=== PATIENT | male | born 1935 | race Caucasian/White ===

== ENCOUNTER → 2018-01-23 | Day surgery (SDC) | payer OTHER, MEDICARE ==
[~2018-01-23] VITALS: Ht 170.2 cm; Wt 67.6 kg
[~2018-01-23] MED LIST: CENTRUM SILVER1 EAC3 PO; CLEOCIN T60 ML TOP; DIOVAN HCT 80-1 EACH PO; METROCREAM45 GM TOP; PERCOCET 5-3251 EACH PO
--- NOTE | 2018-01-23 09:25 | RADIOLOGY REPORT ---
EXAMINATION:\H\ \N\XR CHEST CLINICAL INFORMATION: Port-A-Cath COMPARISON: Chest CT 01/22/2018 TECHNIQUE: Frontal view of the chest was obtained. FINDINGS: New left subclavian approach CT compatible chest port seen. The tip of the chest port is near the cavoatrial junction. No pneumothorax seen. There is a 1.7 cm round left upper lobe nodule projecting posterior to the left first costosternal sternal articulation. Otherwise the lungs are clear. The additional smaller scattered abnormalities seen on yesterday's chest CT are not well appreciated by x-ray. IMPRESSION: New left subclavian approach CT compatible chest port with the tip of the catheter near the cavoatrial junction. 1.7 cm round left upper lobe nodule again seen. The additional smaller scattered abnormality seen on yesterday's chest CT are not well appreciated by x-ray.
--- NOTE | 2018-01-23 10:23 | RADIOLOGY REPORT ---
EXAMINATION:\H\ \N\XR CHEST CLINICAL INFORMATION: Port-A-Cath insertion. COMPARISON: Preprocedural CT scan of the chest 01/22/2018. TECHNIQUE: Multiple intraprocedural images of the chest were obtained during placement of a left-sided central catheter. FINDINGS: The images demonstrate placement of a central catheter from the left chest. Please refer to surgical notes for further details of the procedure. Number of images: 20. Fluoroscopy time: 0.8 minutes. kVp: 69. MAS: 6.31 IMPRESSION: 1. Multiple intraprocedural images during placement of Port-A-Cath by Dr. Cosby. 2. Please refer to operative notes for further details.
--- NOTE | 2018-01-23 10:31 | Operative Report ---
Operative/Inv Procedure Report Surgery Date: 01/23/18 Name of Procedure: Right axillary vein Port-A-Cath placement with ultrasound and fluoroscopic guidance Pre-Operative Diagnosis: Pancreatic cancer Post-Operative Diagnosis: Same Estimated Blood Loss: scant Surgeon/Edge Trimming Machine Operator: Harjeet MARQUIS,Todd Padilla Anesthesia: local monitored anesthesi Implants: [employer] Operative/Procedure Note Note: Patient brought to the operating room and laid supine. His arm tucked and a roll placed behind the shoulder. His left chest and neck were then prepped and draped. He was sedated. Using ultrasound imaging the left axillary vein was visualized and percutaneously accessed after local anesthesia placed. A wire was placed on the right atrium. Confirmation with fluoroscopic imaging was performed. The left chest was then infiltrated further with local anesthesia an incision made over the wire. An inferiorly based pocket was created with blunt and cautery dissection. The port was placed into the pocket and the catheter measured under fluoroscopic imaging. It was trimmed to 25 cm. Using fluoroscopy the dilator was placed down into the SVC. The wire was removed and passed off the field. The catheter was placed through the peel-away sheath. Sheath was then removed. Final fluoroscopic images show the catheter in the atrial SVC junction. The catheter was aspirated and flushed with concentrated heparin. The port was anchored to the deep subcutaneous tissues tissues with 0 Vicryl suture. The skin was closed with 3-0 and 4-0 Vicryl. Steri-Strips and sterile dressing applied. Sponge and needle counts are correct. CC: Stella MARQUIS,Jamar; Jorge Luis MARQUIS,Milan Fregoso
== END ==
LOC: STS 02:37
DX: C25.2 Malignant neoplasm of tail of pancreas (principal); I10 Essential (primary) hypertension; K21.9 Gastro-esophageal reflux disease without esophagitis; Z87.891 Personal history of nicotine dependence
CPT/HCPCS: 71045; C1788; J0131; J0690; J1644; J3490

== ENCOUNTER 2018-01-31 12:43 | Inpatient (IN) | payer OTHER, MEDICARE ==
[~2018-01-31] VITALS: Ht 167.6 cm; Wt 63.1 kg
--- NOTE | 2018-01-31 13:13 | ED GI/GU/ABDOMINAL COMPLAINT ---
History of Present Illness General Chief Complaint: General Adult Stated Complaint: +NV, POSSIBLE BOWEL OBSTRUCTION S/P BM 5 DAYS AGO Source: patient, family, old records Exam Limitations: no limitations Vital Signs & Intake/Output Vital Signs & Intake/Output Vital Signs Date Time Temp Pulse Resp B/P B/P Pulse O2 O2 Flow FiO2 Mean Ox Delivery Rate 01/31 1440 99.2 90 17 114/53 96 Room Air 01/31 1247 99.5 104 18 94/59 97 Room Air Allergies Coded Allergies: No Known Allergies (01/21/18) Reconcile Medications Clindamycin Phosphate (Cleocin T) 1 % LOTION 1 HÉCTOR TOP BID FACE (Reported) apply to affected area(s) Linaclotide (Linzess) 145 MCG CAPSULE 1 CAP PO DAILY GI (Reported) Megestrol Acetate 40 MG TABLET 1 TAB PO DAILY APPETITE (Reported) Metronidazole (Metrocream) 0.75 % CREAM..G. 1 HÉCTOR TOP BID FACE (Reported) apply to affected area(s) Multivit-Min/FA/Lycopen/Lutein (Centrum Silver Tablet) 0.4 MG-300 MCG-250 MCG TABLET 1 TAB PO DAILY SUPPLEMENT (Reported) Oxycodone HCl (Oxycontin) 10 MG TAB.ER.12H 1 TAB PO Q12H PAIN (Reported) Oxycodone HCl 5 MG TABLET 1-2 TAB PO PRN PAIN (Reported) Prochlorperazine Maleate 10 MG TABLET 1 TAB PO Q6 N/V (Reported) Triage Note: 82 YEAR OLD MALE WITH PANCREATITIS, STARTED FIRST CHEMO FRIDAY, PT HAS HAD N/V SINCE FRIDAY HAS NOT MOVED HIS BOWELS IN 5 DAYS. DENIES PAIN. Triage Nurses Notes Reviewed? yes HPI: 82M PMH metastatic pancreatic cancer, recently had right axillary port placed, started on chemotherapy 2 days ago, presents with 5 days without a bowel movement. Patient has been feeling ill, nauseous, and vomiting for several days. He has a poor appetite and poor PO intake. He denies abdominal pain or cramping. He is still passing gas. Last BM 5 days ago was normal. Urinating normally. He denies fever, chills, headache, chest pain, SOB, dysuria. His throat is sore from vomiting. He takes Oxycontin 10mg BID, Oxycodone 5mg PRN (3 -4x/day). He had been taking Linzess until Friday, switched to Senna by visiting nurse, and restarted Linzess 2 days ago. He has no other complaints. Last colonoscopy 2014. Past History Travel History Traveled to [place] past 21 day No Medical History Any Pertinent Medical History? see below for history Neurological: NONE EENT: NONE Cardiovascular: NONE Respiratory: NONE Gastrointestinal: GERD Hepatic: NONE Renal: NONE Musculoskeletal: NONE Psychiatric: NONE Endocrine: NONE Blood Disorders: NONE Cancer(s): pancreatic cancer SUPERVISOR TAN ROOM/Reproductive: NONE Influenza Vaccine: 05/14/09 Surgical History Surgical History: non-contributory Psychosocial History Who do you live with Spouse What is your primary language Ethiopian Tobacco Use: Never used ETOH Use: denies use Illicit Drug Use: denies illicit drug use Family History Hx Contributory? No Review of Systems Review of Systems Constitutional: Reports: no symptoms. EENTM: Reports: no symptoms. Respiratory: Reports: no symptoms. Cardiovascular: Reports: no symptoms. GI: Reports: no symptoms. Genitourinary: Reports: no symptoms. Musculoskeletal: Reports: no symptoms. Skin: Reports: no symptoms. Neurological/Psychological: Reports: no symptoms. Hematologic/Endocrine: Reports: no symptoms. Immunologic/Allergic: Reports: no symptoms. All Other Systems: Reviewed and Negative Physical Exam Physical Exam General Appearance: well developed/nourished, no apparent distress Head: atraumatic, normal appearance Eyes: Bilateral: normal appearance. Ears, Nose, Throat, Mouth: hearing grossly normal, moist mucous membrane, mild erythema in throat Neck: normal inspection, supple, full range of motion Respiratory: normal breath sounds, chest non-tender, no respiratory distress Cardiovascular: regular rate/rhythm Gastrointestinal: soft, non-tender, decreased bowel sounds Back: normal inspection, normal range of motion Extremities: normal range of motion Neurologic/Psych: awake, alert, oriented x 3, normal mood/affect Skin: intact, normal color, warm/dry Core Measures ACS in differential dx? No Sepsis Present: No Sepsis Focused Exam Completed? No Progress Differential Diagnosis: bowel obstruction, colon cancer, SBO Plan of Care: Orders Procedure Date/time Status Nothing by Mouth 01/31 D Active ED Holding Orders 01/31 1505 Active Admit to inpatient 01/31 1505 Active Vital Signs 01/[address] ABD & PELVIS W IV CONTRAST 01/31 1505 Active Patient Data 01/31 1504 Active LIPASE 01/31 1256 Complete COMPREHENSIVE METABOLIC PANEL 01/31 1256 Complete CBC WITHOUT DIFFERENTIAL 01/31 1256 Complete Laboratory Tests 01/31/18 1330: Anion Gap 14, Estimated GFR > 60, BUN/Creatinine Ratio 30.0 H, Glucose 158 H, Calcium 9.1, Total Bilirubin 1.2, AST 25, ALT 39, Alkaline Phosphatase 59, Total Protein 5.9 L, Albumin 3.3 L, Globulin 2.6, Albumin/Globulin Ratio 1.3, Lipase 22 L, CBC w Diff MAN DIFF ORDERED, RBC 4.51 L, MCV 87.4, MCH 29.4, MCHC 33.6, RDW 14.1, MPV 8.5, Gran % 94.7 H, Lymphocytes % 4.3 L, Monocytes % 0.7 L, Eosinophils % 0, Basophils % 0.3, Absolute Granulocytes 21.0 H, Absolute Lymphocytes 1.0 L, Absolute Monocytes 0.2, Absolute Eosinophils 0, Absolute Basophils 0.1, Normocytic RBCs VERIFIED, Normochromic RBCs VERIFIED Diagnostic Imaging: Viewed by Me: Radiology Read. Discussed w/RAD: Radiology Read. Radiology Impression: PATIENT: ANGIE NARANJO PRESENT AGE: 82 PATIENT ACCOUNT NO: [id number] : 33 LOCATION: [facility] ORDERING PHYSICIAN: Keith Mckeon MD SERVICE DATE: 01/31/18 EXAM TYPE : RAD - [id number] VIEW EXAMINATION: XR ABDOMEN CLINICAL INDICATION: Evaluate for obstruction or ileus COMPARISON: None TECHNIQUE: AP view of the abdomen. FINDINGS: There are air-filled loops of bowel bowel questionable for ileus. No dilated loops of bowel to suggest obstruction are seen. There is some stool seen in the colon. There is no evidence of free air. There are no calcifications. There is curvature of the lower lumbar spine to the right. There is degenerative change of the spine and at the hip joints. IMPRESSION: Probable ileus. No evidence of obstruction or free air. DICTATED BY: Eugenie Paige MD DATE/TIME DICTATED:01/31/181358 TRAVEL COTA:AARON DATE/TIME TRANSCRIBED:01/31/181358 CONFIDENTIAL, DO NOT COPY WITHOUT APPROPRIATE AUTHORIZATION. 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, Therapeutic opioid induced constipation Referrals: Jorge Luis MARQUIS,Milan Fregoso (PCP/Family) Departure Forms: Customer Survey General Discharge Information Admission Note Spoke With: Daysi MARQUIS,Milagros Lutz Documentation of Exam: Documentation of any treatments & extenuating circumstances including Concerns Regarding Discharge (functional status, medication knowledge or non-compliance, living conditions, etc.) that warrant an admission rather than observation: STAGE 4 PANCREATIC CANCER RECENTLY STARTED CHEMOTHERAPY WITH ILEUS, NO BM X 5 DAYS DESPITE OUTPATIENT THERAPY, WILL ADMIT FOR BOWEL REGIMEN, ENEMAS, SURGERY AND GI CONSULTS, PAIN MANAGEMENT.
[2018-01-31 13:42] LABS: ABSOLUTE BASOPHIL COUNT 0.1 /CUMM (0.0-0.2); ABSOLUTE EOSINOPHIL COUNT 0 /CUMM (0.0-0.7); ABSOLUTE MONOCYTE COUNT 0.2 /CUMM (0.10-0.60); BASOPHIL % 0.3 % (0.0-2.0); EOSINOPHIL % 0 % (0-5); GRANULOCYTE % 94.7 % (42.2-75.2); HEMATOCRIT 39.5 % (42-52); MEAN CORPUSCULAR HGB 29.4 PG (27.0-31.0); MEAN CORPUSCULAR HGB CONC 33.6 G/DL (33.0-37.0); MEAN CORPUSCULAR VOLUME 87.4 FL (80.0-94.0); MEAN PLATELET VOLUME 8.5 FL (7.4-10.4); PLATELET COUNT 236 /CUMM (130-400); RBC DISTRIBUTION WIDTH 14.1 % (11.5-14.5); RED BLOOD CELL CT 4.51 /CUMM (4.70-6.10); WHITE BLOOD CELL COUNT 22.2 /CUMM (4.8-10.8)
--- NOTE | 2018-01-31 14:05 | RADIOLOGY REPORT ---
EXAMINATION: XR ABDOMEN CLINICAL INDICATION: Evaluate for obstruction or ileus COMPARISON: None TECHNIQUE: AP view of the abdomen. FINDINGS: There are air-filled loops of bowel bowel questionable for ileus. No dilated loops of bowel to suggest obstruction are seen. There is some stool seen in the colon. There is no evidence of free air. There are no calcifications. There is curvature of the lower lumbar spine to the right. There is degenerative change of the spine and at the hip joints. IMPRESSION: Probable ileus. No evidence of obstruction or free air.
[2018-01-31] MEDS ORDERED: MEGESTROL ACETA40 MG PO (14:19)
[2018-01-31] MEDS ORDERED: PROCHLORPERAZIN10 MG PO (14:19)
[2018-01-31] MEDS ORDERED: OXYCONTIN10 M1 PO (14:21)
[2018-01-31] MEDS ORDERED: LINZESS145 MC1 PO (14:21)
[2018-01-31] MEDS ORDERED: OXYCODONE HCL5 M1 PO (14:21)
--- NOTE | 2018-01-31 15:05 | History & Physical ---
Tung MARQUIS,Moreno 01/31/18 1504: General Information and HPI History of Present Illness: Mr. Thurston is an 82-year-old male with past medical history of metastatic pancreatic cancer recently started on gemcitabine 2 days ago followed by LU Bryant, and a recently placed right axillary port for this chemotherapy who presents with constipation. The patient notes that his last bowel movement was on Friday. Since then, he has had persistent constipation and for the past 2 days he has had vomiting twice a day as well that was nonbloody. He is passing gas but is not eating much. He complains of persistent nausea and burping as well as some mild associated shortness of breath. He has no fever, chills, chest pain, cough, or dysuria. He is a former smoker denies alcohol or drug use. Allergies/Medications Allergies: Coded Allergies: No Known Allergies (01/21/18) Home Med list Clindamycin Phosphate (Cleocin T) 1 % LOTION 1 HÉCTOR TOP BID FACE (Reported) apply to affected area(s) Docusate Sodium 100 MG CAPSULE 100 MG PO DAILY NEEDED PRN CONSTIPATION Linaclotide (Linzess) 145 MCG CAPSULE 1 CAP PO DAILY GI (Reported) Megestrol Acetate 40 MG TABLET 1 TAB PO DAILY APPETITE (Reported) Metronidazole (Metrocream) 0.75 % CREAM..G. 1 HÉCTOR TOP BID FACE (Reported) apply to affected area(s) Multivit-Min/FA/Lycopen/Lutein (Centrum Silver Tablet) 0.4 MG-300 MCG-250 MCG TABLET 1 TAB PO DAILY SUPPLEMENT (Reported) Oxycodone HCl (Oxycontin) 10 MG TAB.ER.12H 1 TAB PO Q12H PAIN (Reported) Oxycodone HCl 5 MG TABLET 1-2 TAB PO PRN PAIN (Reported) Prochlorperazine Maleate 10 MG TABLET 1 TAB PO Q6 N/V (Reported) Sennosides/Docusate Sodium (Senna-Time S Tablet) 8.6 MG-50 MG TABLET 187 MG PO AT BEDTIME PRN Constipation Past History Travel History Traveled to [place] past 21 day No Medical History Neurological: NONE EENT: NONE Cardiovascular: NONE Respiratory: NONE Gastrointestinal: GERD Hepatic: NONE Renal: NONE Musculoskeletal: NONE Psychiatric: NONE Endocrine: NONE Blood Disorders: NONE Cancer(s): pancreatic cancer RN RESOURCE NURSE/Reproductive: NONE Influenza Vaccine: 05/14/09 Surgical History Surgical History: non-contributory Past Family/Social History Psychosocial History ETOH Use: denies use Illicit Drug Use: denies illicit drug use Review of Systems Review of Systems Constitutional: Reports: no symptoms. EENTM: Reports: no symptoms. Cardiovascular: Reports: no symptoms. Respiratory: Reports: no symptoms. GI: Reports: see HPI. Genitourinary: Reports: no symptoms. Musculoskeletal: Reports: no symptoms. Skin: Reports: no symptoms. Neurological/Psychological: Reports: no symptoms. Hematologic/Endocrine: Reports: no symptoms. Immunologic/Allergic: Reports: no symptoms. All Other Systems: Reviewed and Negative Exam & Diagnostic Data Last 24 Hrs of Vital Signs/I&O Vital Signs Date Time Temp Pulse Resp B/P B/P Pulse O2 O2 Flow FiO2 Mean Ox Delivery Rate 01/31 1440 99.2 90 17 114/53 96 Room Air 01/31 1247 99.5 104 18 94/59 97 Room Air Intake & Output 01/31 1600 01/31 0800 01/31 0000 Intake Total Output Total Balance Patient 67.132 kg Weight Physical Exam General Appearance Alert, Oriented X3, Cooperative, No Acute Distress Cardiovascular Regular Rate, Normal S1, Normal S2, L axillary port nonerythematous Lungs Clear to Auscultation Abdomen Soft, No Tenderness Extremities No Edema, Normal Pulses, No Tenderness/Swelling Last 24 Hrs of Labs/Satya: Laboratory Tests 01/31/18 1330: Anion Gap 14, Estimated GFR > 60, BUN/Creatinine Ratio 30.0 H, Glucose 158 H, Calcium 9.1, Total Bilirubin 1.2, AST 25, ALT 39, Alkaline Phosphatase 59, Total Protein 5.9 L, Albumin 3.3 L, Globulin 2.6, Albumin/Globulin Ratio 1.3, Lipase 22 L, CBC w Diff MAN DIFF ORDERED, RBC 4.51 L, MCV 87.4, MCH 29.4, MCHC 33.6, RDW 14.1, MPV 8.5, Gran % 94.7 H, Lymphocytes % 4.3 L, Monocytes % 0.7 L, Eosinophils % 0, Basophils % 0.3, Absolute Granulocytes 21.0 H, Absolute Lymphocytes 1.0 L, Absolute Monocytes 0.2, Absolute Eosinophils 0, Absolute Basophils 0.1, Normocytic RBCs VERIFIED, Normochromic RBCs VERIFIED Assessment/Plan Assessment: Mr. Thurston is an 82-year-old male with past medical history of metastatic pancreatic cancer recently started on gemcitabine 2 days ago followed by LU Bryant, and a recently placed right axillary port for this chemotherapy who presents with constipation. On presentation, vital signs were T 99.4, HR 104, RR 18, BP 194/59, saturating 97% room air. Laboratories were significant for white blood cell count 22.4, hemoglobin 13.3, MCV 87.4, chloride 96, BUN 33, LFTs negative. Abdominal x-ray showed a mild ileus. He will be admitted to general medicine and treated for the following problems: 1. Constipation 2. Leukocytosis 3. Normocytic anemia #Constipation: Patient has metastatic pancreatic cancer recently started on gemcitabine now presenting with constipation 2 days after starting the chemotherapy drug. Gemcitabine does not seem to be associated with constipation or leukocytosis. It is possible that he is developed a malignant SBO though the abdominal x-ray did not show this. He is passing gas though he seems to have significant burping. If he is partially obstructed, we can give promotility agents. -N.p.o. -CT scan abdomen/pelvis w/ contrast -GI consult -Oncology consult -IV fluid hydration -Bowel regimen -Ondansetron -Pantoprazole IV -IV pain control #Leukocytosis: Patient has marked leukocytosis but is afebrile without signs of infection. It is possibly reactive. -Monitor for infection -Blood cultures -If febrile, consider starting antibiotics #Normocytic anemia: Likely related to chemotherapy drug. -Continue to monitor #Chronic medical problems: Continue other home medications DVT prophylaxis with enoxaparin Regular diet Full code As Ranked By This Provider Problem List: 1. Pancreatic cancer metastasized to lung Core Measures/Misc (03/30) Acute Coronary Syndrome ACS Diagnosis: No Congestive Heart Failure Congestive Heart Failure Diagnosis No Cerebrovascular Accident CVA/TIA Diagnosis: No VTE (View Protocol) VTE Risk Factors Age>40 No Mechanical VTE Prophylaxis d/t N/A MechProphylax Ordered No VTE Pharm Prophylaxis d/t NA PharmProphylax ordered Sepsis (View protocol) Sepsis Present: No If YES complete Sepsis Event Note If YES complete Sepsis Event Note Daysi MARQUIS,Milagros 01/31/18 1604: Core Measures/Misc (03/30) Sepsis (View protocol) If YES complete Sepsis Event Note If YES complete Sepsis Event Note Attending MD Review Statement Attending Statement Attending MD Statement: examined this patient, discuss w/resident/PA/FIGURE MODEL, agreed w/resident/PA/FIGURE MODEL, reviewed EMR data (avail), reviewed images Attending Assessment/Plan: 82-year-old male past medical history of metastatic pancreatic carcinoma, recent port placement and chemotherapy with gemcitabine. Has chronic constipation and there has been worse for the past few days with no bowel movement at all, has also been vomiting intermittently. When he came in today he has leukocytosis of unclear etiology, there is no obvious focus of infection and the port site appears clean. His abdominal x-ray shows an ileus and he appears dehydrated on exam. We'll bring him into GEN med, gently hydrate him, get a CT scan of the abdomen to see the extent of the ileus and to make sure there is no malignant mass causing the obstruction. For now will watch him off antibiotics and panculture him. Convert his opiates to IV giving them to him very carefully given the ileus.
--- NOTE | 2018-01-31 16:08 | Admission Certification ---
Admission Certification Certification Statement - As attending physician, I certify that at the time of - admission, based on clinical presentation, severity of - symptoms, need for further diagnostic testing and - therapeutic interventions, and risk of adverse outcomes - without in-hospital treatment, in my clinical assessment, - this patient requires an acute hospital stay for a minimum - of two nights or longer. I have also considered psychsocial - factors such as support system, advanced age, financial - issues, cognitive issues, and failed out-patient treatments, - past re-admission history, safety of patient, and lack of - compliance as applicable. Specific rationale supporting this admission is: Ileus in patient with metastatic cancer
--- NOTE | 2018-01-31 18:00 | CT SCAN REPORT ---
EXAMINATION: CT ABDOMEN AND PELVIS WITH CONTRAST CLINICAL INFORMATION: No bowel movement for 5 days. History of metastatic pancreatic adenocarcinoma. COMPARISON: CT abdomen pelvis 12/31/2017. TECHNIQUE: Multidetector volumetric imaging was performed of the abdomen and pelvis following IV administration of 95 mL of Optiray 320 intravenous contrast. Sagittal and coronal reformatted images were obtained on the technologist's workstation. DLP: 283.87 mGy-cm FINDINGS: LUNG BASES: Stable subpleural 4 mm subpleural nodule at the left lung base image 48 (3). LIVER, GALLBLADDER, AND BILIARY TREE: There are multiple low attenuating lesions again seen in the liver both the left and right lobes. This has not changed substantially since the CAT scan of 12/31/2017. No intrapelvic bile duct dilatation. The gallbladder is unremarkable with no evidence of radiopaque gallstones, gallbladder wall thickening, or obvious pericholecystic inflammatory changes. PANCREAS: Low attenuating mass at the tail the pancreas not changed since prior CAT scan 12/31/2017. The smaller additional cystic areas at the mid body noted on prior CAT scan remain unchanged in size as well. No new lesion of the pancreas. No pancreatic duct dilatation. SPLEEN: Unremarkable. ADRENAL GLANDS: Unremarkable. KIDNEYS AND URETERS: The kidneys are normal in size, shape, and attenuation. No hydronephrosis, hydroureter, or calculi seen. No perinephric stranding. There are multiple bilateral renal cysts. BLADDER: Unremarkable. GASTROINTESTINAL TRACT: There is no acute change of the bowel. No bowel obstruction. No bowel wall thickening or edema. There are scattered diverticula of the left colon but no diverticulitis. There is a moderate amount of stool in the colon. The appendix is normal. There is a duodenal diverticulum at the second portion of duodenum measuring 4 cm. The thickening of the duodenum and small bowel loops adjacent to the pancreatic mass are suspicious for invasion of the wall of small bowel but there is no obstruction of the bowel. ABDOMINAL WALL: There are small bilateral fat-containing inguinal hernias. LYMPH NODES: There is no bulky lymphadenopathy. VASCULAR: There is atherosclerotic vascular wall calcifications of aorta and iliac arteries without aneurysm. PELVIC VISCERA: Prostate measures 4.5 cm transverse. OSSEOUS STRUCTURES: There is degenerative spondylosis of the spine with multilevel disc height narrowing and endplate spurring of the vertebrae. There is an S-shaped scoliosis of the spine. IMPRESSION: 1. No acute change. No significant change since the prior CAT scan of 12/31/2017. 2. Large mass at tail of pancreas consistent with history of adenocarcinoma. Metastatic lesions again noted within the liver.
[2018-01-31 18:01] VITALS: BP 128/60
[2018-01-31 22:03] VITALS: BP 108/56
[2018-02-01 06:32] VITALS: BP 106/56
--- NOTE | 2018-02-01 08:37 | PN- Housestaff ---
See Addendum Subjective Follow-up For: Constipation Subjective: No overnight events. The patient had 4 bowel movement since yesterday feels much better. He had no fevers, chills, or other issues overnight. He would like to go home today. Review of Systems Constitutional: Reports: no symptoms. EENTM: Reports: no symptoms. Cardiovascular: Reports: no symptoms. Respiratory: Reports: no symptoms. Gastrointestinal: Reports: see HPI. Genitourinary: Reports: no symptoms. Musculoskeletal: Reports: no symptoms. Skin: Reports: no symptoms. Neurological/Psychological: Reports: no symptoms. Hematologic/Endocrine: Reports: no symptoms. Immunologic/Allergic: Reports: no symptoms. Objective Last 24 Hrs of Vital Signs/I&O Vital Signs Date Time Temp Pulse Resp B/P B/P Pulse O2 O2 Flow FiO2 Mean Ox Delivery Rate 02/01 0632 97.5 81 20 106/56 97 Room Air 01/31 2203 98.4 89 20 108/56 97 Room Air 01/31 1807 Room Air 01/31 1801 99.6 88 18 128/60 97 Room Air 01/31 1626 99.9 96 16 108/55 97 Room Air 01/31 1440 99.2 90 17 114/53 96 Room Air 01/31 1247 99.5 104 18 94/59 97 Room Air Intake & Output 02/01 1600 02/01 0800 02/01 0000 Intake Total 440 1040 Output Total 100 Balance 440 940 Intake, IV 200 800 Intake, Oral 240 240 Number 3 1 Bowel Movements Output, Urine 100 Patient 63.106 kg 67.585 kg Weight Weight Bed scale Measurement Method Physical Exam General Appearance: Alert, Oriented X3, Cooperative, No Acute Distress Cardiovascular: Regular Rate, Normal S1, Normal S2 Lungs: Clear to Auscultation Abdomen: Normal Bowel Sounds, Soft, No Tenderness Current Medications: Current Medications Sig/Simon Start time Last Medication Dose Route Stop Time Status Admin Acetaminophen 1,000 MG Q8P PRN 01/31 1600 AC N/A 1 UNIT IV Acetaminophen 1,000 MG Q8P PRN 01/31 1545 DC PO Bisacodyl 10 MG Q12P PRN 01/31 1900 AC VA Bisacodyl 10 MG ONCE ONE 01/31 1430 DC 01/31 VA 01/31 1431 1733 Dextrose/Lactated 1,000 ML Q10H 01/31 1545 DC 01/31 Ringer's IV 02/01 0144 1733 Docusate Sodium 100 MG DAILY NEEDED PRN 01/31 1900 AC PO Enoxaparin Sodium 40 MG DAILY 02/01 0900 AC SC Ketorolac 15 MG Q6P PRN 01/31 1545 AC Tromethamine IV Metoclopramide HCl 0 .STK-MED ONE 01/31 1530 DC PO Metoclopramide HCl 10 MG ONCE ONE 01/31 1430 DC 01/31 PO 01/31 1431 1500 Morphine Sulfate 6 MG Q4 HRS NEEDED PRN 01/31 1600 AC IV Ondansetron HCl 4 MG Q6-PRN PRN 01/31 1545 AC IV Oxycodone HCl 5 MG Q6 PRN 01/31 1545 DC PO Pantoprazole Sodium 40 MG DAILY 01/31 1600 AC 01/31 IV 2031 Senna 187 MG AT BEDTIME 01/31 2100 AC 01/31 PO 2031 Sodium Phosphate 1 UNIT ONCE ONE 01/31 1515 DC 01/31 VA 01/31 1516 1832 Last 24 Hrs of Lab/Satya Results Last 24 Hrs of Labs/Mics: Laboratory Tests 02/01/18 0550: Sodium Pending, Potassium Pending, Chloride Pending, Carbon Dioxide Pending, Anion Gap Pending, BUN Pending, Creatinine Pending, BUN/Creatinine Ratio Pending , CBC w Diff Pending, WBC Pending, RBC Pending, Hgb Pending, Hct Pending, MCV Pending, MCH Pending, MCHC Pending, RDW Pending, Plt Count Pending, MPV Pending 01/31/18 2200: Urinalysis LIGHT H, Urine Color YEL, Urine Clarity CLEAR, Urine pH 6.0, Ur Specific [place] 1.010, Urine Protein 30 H, Urine Ketones NEG, Urine Nitrite NEG, Urine Bilirubin NEG, Urine Urobilinogen 1.0, Ur Leukocyte Esterase NEG, Ur Microscopic SEDIMENT EXAMINED, Urine RBC 1-3, Urine Hemoglobin NEG, Urine Glucose NEG 01/31/18 1330: Anion Gap 14, Estimated GFR > 60, BUN/Creatinine Ratio 30.0 H, Glucose 158 H, Calcium 9.1, Total Bilirubin 1.2, AST 25, ALT 39, Alkaline Phosphatase 59, Total Protein 5.9 L, Albumin 3.3 L, Globulin 2.6, Albumin/Globulin Ratio 1.3, Lipase 22 L, CBC w Diff MAN DIFF ORDERED, RBC 4.51 L, MCV 87.4, MCH 29.4, MCHC 33.6, RDW 14.1, MPV 8.5, Gran % 94.7 H, Lymphocytes % 4.3 L, Monocytes % 0.7 L, Eosinophils % 0, Basophils % 0.3, Absolute Granulocytes 21.0 H, Absolute Lymphocytes 1.0 L, Absolute Monocytes 0.2, Absolute Eosinophils 0, Absolute Basophils 0.1, Normocytic RBCs VERIFIED, Normochromic RBCs VERIFIED Microbiology 01/31 2200 URINE ROUT: Urine Culture - RECD 01/31 1549 BLOOD: Blood Culture - COLB 01/31 1549 BLOOD: Blood Culture - COLB Assessment/Plan Assessment: Mr. Thurston is an 82-year-old male with past medical history of metastatic pancreatic cancer recently started on gemcitabine 2 days ago followed by Dr. Douglas, GERD, and a recently placed right axillary port for this chemotherapy who presented with constipation. Problem list: 1. Constipation 2. Leukocytosis 3. Normocytic anemia #Constipation: Patient has metastatic pancreatic cancer recently started on gemcitabine now presenting with constipation 2 days after starting the chemotherapy drug. Gemcitabine does not seem to be associated with constipation or leukocytosis. CT scan did not show any malignant obstruction and he has now had 4 bowel movements after starting a bowel regimen. He feels much better and would like to go home today. -Regular diet -Oncology recommendations appreciated -Bowel regimen -Ondansetron -Pantoprazole IV -Pain control #Leukocytosis: Patient has marked leukocytosis but is afebrile without signs of infection. It is possibly reactive. -Monitor for infection -Blood cultures -If febrile, consider starting antibiotics #Normocytic anemia: Likely related to chemotherapy drug. -Continue to monitor #Chronic medical problems: Continue other home medications DVT prophylaxis with enoxaparin Regular diet Full code Problem List: 1. Therapeutic opioid induced constipation Pain Ratin Pain Location: no Pain Goal: Remain pain free Pain Plan: see a/p Tomorrow's Labs & Rationales: no
[2018-02-01] MEDS ORDERED: DOCUSATE SODIU100 M3 PO ×2 (08:38→09:58)
[2018-02-01] MEDS ORDERED: SENNA-TIME S T1 EACH PO ×2 (08:38→09:58)
--- NOTE | 2018-02-01 08:39 | Patient Discharge Instructions ---
Discharge Instructions General Discharge Information You were seen/treated for: Constipation Watch for these problems: Fever, chest pain, shortness of breath Special Instructions: Please take all medications as directed. Please follow-up with primary care and oncology. Diet Continue normal diet: Yes Activity Full Activity/No Limits: Yes Acute Coronary Syndrome Inclusion Criteria At DC or during hospital stay patient has or had the following: ACS DIAGNOSIS No Discharge Core Measures Meds if any: Prescribed or Continued at Discharge Meds if any: NOT Prescribed or Continued at Discharge Congestive Heart Failure Inclusion Criteria At DC or during hospital stay patient has or had the following: CHF DIAGNOSIS No Discharge Core Measures Meds if any: Prescribed or Continued at Discharge Meds if any: NOT Prescribed or Continued at Discharge Cerebrovascular accident Inclusion Criteria At DC or during hospital stay patient has or had the following: CVA/TIA Diagnosis No Discharge Core Measures Meds if any: Prescribed or Continued at Discharge Meds if any: NOT Prescribed or Continued at Discharge Venous thromboembolism Inclusion Criteria VTE Diagnosis No VTE Type NONE VTE Confirmed by (Test) NONE Discharge Core Measures - Per Current guidelines, there needs to be overlap - treatment for the first 5 days of Warfarin therapy. - If discharged on Warfarin prior to 5 days of - overlap therapy, the patient will need to be - assessed for post discharge needs including - *Post discharge parental anticoagulation - *Warfarin and/or parental anticoagulation education - *Follow up date to check INR post discharge At least 5 days overlap therapy as Inpatient No Meds if any: Prescribed or Continued at Discharge Note: Overlap Therapy is Warfarin and Anticoagulant Meds if any: NOT Prescribed or Continued at Discharge
[2018-02-01 09:35] LABS: ABSOLUTE BASOPHIL COUNT 0 /CUMM (0.0-0.2); ABSOLUTE EOSINOPHIL COUNT 0.1 /CUMM (0.0-0.7); ABSOLUTE GRANULOCYTE CT 17.9 /CUMM (1.4-6.5); ABSOLUTE LYMPH COUNT 1.2 /CUMM (1.2-3.4); ABSOLUTE MONOCYTE COUNT 0.1 /CUMM (0.10-0.60); BASOPHIL % 0.1 % (0.0-2.0); EOSINOPHIL % 0.4 % (0-5); GRANULOCYTE % 92.4 % (42.2-75.2); HEMATOCRIT 37.1 % (42-52); MEAN CORPUSCULAR HGB 29.2 PG (27.0-31.0); MEAN CORPUSCULAR HGB CONC 33.5 G/DL (33.0-37.0); MEAN CORPUSCULAR VOLUME 87.3 FL (80.0-94.0); MEAN PLATELET VOLUME 9.4 FL (7.4-10.4); PLATELET COUNT 209 /CUMM (130-400); RBC DISTRIBUTION WIDTH 14.1 % (11.5-14.5); RED BLOOD CELL CT 4.25 /CUMM (4.70-6.10); WHITE BLOOD CELL COUNT 19.3 /CUMM (4.8-10.8)
== END 2018-02-01 13:36 | DRG 392 ==
LOC: ERH 12:43 → ERHI 15:05 → CANRESERV 16:03 → ENRESERV 16:03 → ENTRNSPT 16:47 → EDTRNSPTSTS 16:56 → EDTRNSPT 16:56 → 2NA 17:00 → CMPTRNSPT 17:30 → ENPENDDIS 02-01 11:16 → 2NA 02-01 13:36
PROVIDERS: Internal Medicine
DX: K59.03 Drug induced constipation (principal); C25.9 Malignant neoplasm of pancreas, unspecified; C78.00 Secondary malignant neoplasm of unspecified lung; D64.81 Anemia due to antineoplastic chemotherapy; T40.2X5A Adverse effect of other opioids, initial encounter; T45.1X5A Adverse effect of antineoplastic and immunosuppressive drugs, initial encounter; K21.9 Gastro-esophageal reflux disease without esophagitis; D72.829 Elevated white blood cell count, unspecified
CPT/HCPCS: 2NAP; 36415; 74018; 74021; 74177; 81001; 82436; 87040; 87086; 93005; 93010; J0131; J1642; J1650; J2405